=== PATIENT | male | born 1945 | race Caucasian/White ===

== ENCOUNTER → 2017-02-21 | Outpatient (CLI) | payer MEDICARE, OTHER ==
[~2017-02-21] MED LIST: ALPR.5T PO; ATOR10TA66 PO; CITA40TA19 PO; GADOBUTROL 10 MMOL/10 ML (GADAVIST) VIAL IV ONE; LEVO5TAB2 PO; OLME40TA14 PO; OMEP-10 PO; TEMA30CA6 PO
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
== END ==
LOC: RAD 08:31
DX: R41.3 Other amnesia (principal); R51 Headache
CPT/HCPCS: 70553

== ENCOUNTER 2017-03-06 10:41 | Outpatient (RCR) | payer OTHER ==
[~2017-03-06 10:41] MED LIST changes: -GADOBUTROL 10 MMOL/10 ML (GADAVIST) VIAL IV ONE
== END 2017-03-19 15:32 | disposition home or self-care (01) ==
PROVIDERS: ATTEND Nurse Practitioner Family
DX: M25.552 Pain in left hip (principal); M25.551 Pain in right hip